=== PATIENT | male | born 1990 | race American Indian/Alaskan Native ===

== ENCOUNTER 2020-12-23 10:49 | Emergency (ER) | payer SELFPAY ==
[2020-12-23 11:43] LABS: Alanine Aminotransferase 13 units/L (7-56); Albumin 3.9 g/dL (3.9-5); BUN/Creatinine Ratio 12; Blood Urea Nitrogen 11 mg/dL (9-20); Calcium 9.5 mg/dL (8.4-10.2); Hemolysis Index 8
[2020-12-23 11:46] LABS: Basophils % (Auto) 0.3 % (0.0-1.8); Eosinophils # (Auto) 0.1 K/mm3 (0.0-0.4); Eosinophils % (Auto) 1.4 % (0.0-4.3); Hematocrit 46.1 % (35.5-45.6); Hemoglobin 16.1 gm/dl (11.8-15.2); Lymphocytes # (Auto) 1.5 K/mm3 (1.2-5.4); Lymphocytes % (Auto) 17.1 % (13.4-35.0); Mean Corpuscular HGB Conc 35 % (32-34); Mean Corpuscular Volume 103 fl (84-94); Monocytes # (Auto) 1.2 K/mm3 (0.0-0.8); Monocytes % (Auto) 13.8 % (0.0-7.3); Platelet Count 306 K/mm3 (140-440); Red Blood Count 4.47 M/mm3 (3.65-5.03); Red Cell Distribution Width 12.9 % (13.2-15.2)
[2020-12-23 14:32] VITALS: BP 114/81
--- NOTE | 2020-12-23 14:46 | Emergency Department Report ---
ED General Adult HPI - General Chief complaint: Abdominal Pain Stated complaint: VOMITING,ABDOMINAL PAIN Time Seen by Provider: 12/23/20 14:32 Source: patient Mode of arrival: Ambulatory Limitations: No Limitations - History of Present Illness Initial comments: Patient is a 30-year-old male presents emergency room complaints of intermittent diarrhea that began 4 days ago. He states he only experiences the diarrhea whenever he eats something but otherwise has no diarrhea. He states after he eats he began feeling abdominal cramping and then the diarrhea occurs. He states that he ate some shrimp a few days ago and is not sure if that caused his diarrhea. He states he is the only person who ate the shrimp. He denies any fever, vomiting, hematochezia, melena, hematemesis, urinary symptoms, pus in the stool. he denies any known sick contacts, recent travel, recent antibiotics. Patient has a past medical history of HIV and reports that he is on his antivirals and states that he is undetectable. No allergies to medicines. - Related Data Previous Rx's Medication Instructions Recorded Last Taken Type Hyoscyamine Subl [Levsin Sl 0.125 0.125 mg SL Q6HR PRN #10 tab 12/23/20 Unknown Rx TAB] Allergies Allergy/AdvReac Type Severity Reaction Status Date / Time No Known Allergies Allergy Verified 12/23/20 10:57 ED Review of Systems ROS: Stated complaint: VOMITING,ABDOMINAL PAIN Other details as noted in HPI Comment: All other systems reviewed and negative ED Past Medical Hx - Past Medical History Previous Medical History?: No - Surgical History Past Surgical History?: No - Medications Home Medications: Home Medications Medication Instructions Recorded Confirmed Last Taken Type Hyoscyamine Subl [Levsin Sl 0.125 0.125 mg SL Q6HR PRN #10 tab 12/23/20 Unknown Rx TAB] ED Physical Exam - General Limitations: No Limitations General appearance: alert, in no apparent distress - Head Head exam: Present: atraumatic, normocephalic - Eye Eye exam: Present: normal appearance - ENT ENT exam: Present: mucous membranes moist - Respiratory Respiratory exam: Present: normal lung sounds bilaterally. Absent: respiratory distress, wheezes, rales, rhonchi, stridor, chest wall tenderness, accessory muscle use, decreased breath sounds, prolonged expiratory - Cardiovascular Cardiovascular Exam: Present: regular rate, normal rhythm, normal heart sounds. Absent: systolic murmur, diastolic murmur, rubs, gallop - GI/Abdominal GI/Abdominal exam: Present: soft, normal bowel sounds. Absent: distended, tenderness, guarding, rebound, rigid - Neurological Exam Neurological exam: Present: alert, oriented X3 - Psychiatric Psychiatric exam: Present: normal affect, normal mood - Skin Skin exam: Present: warm, dry, intact ED Course Vital Signs 12/23/20 11:00 Temperature 98.3 F Pulse Rate 85 Respiratory 16 Rate Blood Pressure 114/81 O2 Sat by Pulse 98 Oximetry ED Medical Decision Making - Lab Data Result diagrams: 12/23/20 11:06 12/23/20 11:06 Lab Results 12/23/20 12/23/20 Range/Units 11:06 11:06 WBC 8.9 (4.5-11.0) K/mm3 RBC 4.47 (3.65-5.03) M/mm3 Hgb 16.1 H (11.8-15.2) gm/dl Hct 46.1 H (35.5-45.6) % MCV 103 H (84-94) fl MCH 36 H (28-32) pg MCHC 35 H (32-34) % RDW 12.9 L (13.2-15.2) % Plt Count 306 (140-440) K/mm3 Lymph % (Auto) 17.1 (13.4-35.0) % [place] % (Auto) 13.8 H (0.0-7.3) % Eos % (Auto) 1.4 (0.0-4.3) % Baso % (Auto) 0.3 (0.0-1.8) % Lymph # (Auto) 1.5 (1.2-5.4) K/mm3 [place] # (Auto) 1.2 H (0.0-0.8) K/mm3 Eos # (Auto) 0.1 (0.0-0.4) K/mm3 Baso # (Auto) 0.0 (0.0-0.1) K/mm3 Seg Neutrophils % 67.4 (40.0-70.0) % Seg Neutrophils # 6.0 (1.8-7.7) K/mm3 Sodium 135 L (137-145) mmol/L Potassium 3.7 (3.6-5.0) mmol/L Chloride 94.8 L (98-107) mmol/L Carbon Dioxide 30 (22-30) mmol/L Anion Gap 14 mmol/L BUN 11 (9-20) mg/dL Creatinine 0.9 (0.8-1.3) mg/dL Estimated GFR > 60 ml/min BUN/Creatinine Ratio 12 % Glucose 94 (75-100) mg/dL Calcium 9.5 (8.4-10.2) mg/dL Total Bilirubin 0.30 (0.1-1.2) mg/dL AST 18 (5-40) units/L ALT 13 (7-56) units/L Alkaline Phosphatase 62 (35-129) units/L Total Protein 7.4 (6.3-8.2) g/dL Albumin 3.9 (3.9-5) g/dL Albumin/Globulin Ratio 1.1 % - Medical Decision Making Patient is a 30-year-old male presents emergency room complaints of intermittent diarrhea that began 4 days ago. He states he only experiences the diarrhea whenever he eats something but otherwise has no diarrhea. He states after he eats he began feeling abdominal cramping and then the diarrhea occurs. He states that he ate some shrimp a few days ago and is not sure if that caused his diarrhea. He states he is the only person who ate the shrimp. He denies any fever, vomiting, hematochezia, melena, hematemesis, urinary symptoms, pus in the stool. he denies any known sick contacts, recent travel, recent antibiotics. Patient has a past medical history of HIV and reports that he is on his antivirals and states that he is undetectable. No allergies to medicines. Vitals are normal. Patient is afebrile, no tachycardia. Patient has no abdominal tenderness on exam, no guarding, no rebound, no rigidity, normal bowel sounds, no peritoneal signs, no distention, bowel sounds are normal. Labs are normal. Advised patient that he needs to follow-up with primary care doctor, infectious disease, and outpatient GI. I discussed very strict return precautions in detail with patient. Advised patient that he need to be reexamined in the next 2 days. Given prescription for medication. Advised patient Please take medication as prescribed. Increase your fluid intake. Eat a bland liquid diet and slowly advance your diet as tolerated. Follow-up with your primary care doctor. Follow-up with a GI doctor. Follow-up with your infectious disease doctor. Re turn to emergency room immediately for any new or worsening symptoms. Critical care attestation.: If time is entered above; I have spent that time in minutes in the direct care of this critically ill patient, excluding procedure time. ED Disposition Clinical Impression: Abdominal cramping Diarrhea Qualifiers: Diarrhea type: unspecified type Qualified Code(s): R19.7 - Diarrhea, unspecified Disposition: TO HOME OR SELFCARE Is pt being admited?: No Does the pt Need Aspirin: No Condition: Stable Instructions: Diarrhea, Adult Additional Instructions: Please take medication as prescribed. Increase your fluid intake. Eat a bland liquid diet and slowly advance your diet as tolerated. Follow-up with your primary care doctor. Follow-up with a GI doctor. Follow-up with your infectious disease doctor. Return to emergency room immediately for any new or worsening symptoms. Prescriptions: Hyoscyamine Subl [Levsin Sl 0.125 TAB] 0.125 mg SL Q6HR PRN #10 tab PRN Reason: abd cramping/diarrhea Referrals: [facility] [Provider Group] - 2-3 Days OMAYRA MOTT MD [Staff Physician] - 2-3 Days your, infectious disease doctor [Other] - 2-3 Days Time of Disposition: 14:44 Print Language: YI
== END 2020-12-23 20:28 | disposition home or self-care (01) ==
LOC: ED 10:49
DX: R19.7 Diarrhea, unspecified (principal); R10.9 Unspecified abdominal pain; Z79.899 Other long term (current) drug therapy
CPT/HCPCS: 36415; 80053; 85025